=== PATIENT | male | born 1965 | race African-American/Black ===

== ENCOUNTER 2018-07-20 18:24 | Inpatient (IN) | payer MEDICAID ==
[~2018-07-20] VITALS: Ht 185.4 cm; Wt 64.9 kg
[2018-07-20] MEDS ORDERED: KETOROLAC 30MG/ML VIAL IV ONE (22:30)
[2018-07-20] MEDS ORDERED: LEVETIRACETAM 500MG PREMIX 100 ML IV ONE (22:30)
[2018-07-20] MEDS ORDERED: TETANUS, DIPHTHERIA, PERTUSSIS VAC/PF 0.5ML (>7YR OLD) IM ONE (22:30)
[2018-07-20] MEDS ORDERED: SODIUM CHLORIDE 0.9% 1,000 ML IV ONE (22:32)
[2018-07-20 23:18] LABS: BASOPHILS % 1.7 % (0.0-2.0); HEMATOCRIT. 39.7 % (42.0-52.0); HEMOGLOBIN. 13.7 g/dL (14.0-18.0); LYMPHOCYTES % 32.3 % (20.0-50.0); MEAN CORPUSCULAR HEMOGLOBIN 32.5 pg (28.0-32.0); MEAN CORPUSCULAR VOLUME 94.2 fL (80.0-94.0); MEAN PLATELET VOLUME 8.2 fl (7.4-10.4); MONOCYTES % 10.5 % (2.0-8.0); NEUTROPHILS % 53.5 % (40.0-76.0); PLATELET 139 x1000/uL (130-400); RED BLOOD CELL COUNT 4.22 mill/uL (4.7-6.1); RED CELL DISTRIBUTION WIDTH 14.2 % (11.6-14.6)
[2018-07-20 23:22] LABS: CHLORIDE 101 mEq/L (98-107)
[2018-07-20 23:27] LABS: ETHANOL BLOOD 67 mg/dL; PROTHROMBIN TIME 9.7 sec (9.1-11.1)
[2018-07-20] MEDS ORDERED: FOLIC ACID 1 MG, MVI, ADULT NO.1 10 ML in DEXTROSE 5% WATER 1,000 ML IV SCH ×3 (23:45)
[2018-07-20] MEDS ORDERED: FOLIC ACID 1 MG, THIAMINE HCL 100 MG, MVI, ADULT NO.1 10 ML in DEXTROSE 5% WATER 1,000 ML IV ONE ×4 (23:45)
[2018-07-21] MEDS ORDERED: LORAZEPAM 2MG/ML CPJ IV ONE (00:15)
[2018-07-21 03:02] LABS: CLARITY URINE CLEAR (CLEAR); COLOR URINE YELLOW (YELLOW); KETONES URINE NEGATIVE (NEGATIVE); LEUKOCYTE ESTERASE URINE NEGATIVE (NEGATIVE); NITRITE URINE NEGATIVE (NEGATIVE); OCCULT BLOOD URINE NEGATIVE (NEGATIVE); PH URINE 5.5 (4.5-8.0); PROTEIN URINE NEGATIVE (NEGATIVE); SPECIFIC GRAVITY URINE 1.009 (1.005-1.030); UROBILINOGEN URINE 0.2 E.U./dL (0.2-1.0)
[2018-07-21 03:24] LABS: *AMPHETAMINES SCREEN URINE NEGATIVE (NEGATIVE)
[2018-07-21 03:25] LABS: *BARBITURATES SCREEN URINE NEGATIVE (NEGATIVE); *BENZODIAZEPINES SCREEN URINE NEGATIVE (NEGATIVE); *COCAINE SCREEN URINE NEGATIVE (NEGATIVE); CANNABINOID URINE SCREEN PRESUMTIVE POSITIVE (NEGATIVE); METHADONE URINE SCREEN NEGATIVE (NEGATIVE); OPIATES URINE SCREEN NEGATIVE (NEGATIVE); PHENCYCLIDINE URINE SCREEN NEGATIVE (NEGATIVE)
[2018-07-21 03:55] VITALS: BP 155/83
[2018-07-21 04:00] VITALS: BP 126/95
[2018-07-21 04:15] VITALS: BP 155/83
[2018-07-21] MEDS ORDERED: LORAZEPAM 2MG/ML CPJ IV PRN (07:00)
[2018-07-21] MEDS ORDERED: ACETAMINOPHEN 325MG TABLET PO PRN (07:00)
[2018-07-21 08:00] VITALS: BP 104/68
[2018-07-21] MEDS ORDERED: FAMOTIDINE 20MG TABLET PO SCH (09:00)
[2018-07-21 09:36] LABS: BASOPHILS % 1.4 % (0.0-2.0); EOSINOPHILS % 1.5 % (0.0-5.0); HEMATOCRIT. 38.7 % (42.0-52.0); HEMOGLOBIN. 13.1 g/dL (14.0-18.0); LYMPHOCYTES % 17.1 % (20.0-50.0); MEAN CORPUSCULAR HEMOGLOBIN 32.3 pg (28.0-32.0); MEAN CORPUSCULAR VOLUME 95.7 fL (80.0-94.0); MEAN PLATELET VOLUME 8.8 fl (7.4-10.4); MONOCYTES % 11.9 % (2.0-8.0); NEUTROPHILS % 68.1 % (40.0-76.0); PLATELET 128 x1000/uL (130-400); RED BLOOD CELL COUNT 4.05 mill/uL (4.7-6.1)
[2018-07-21 09:39] LABS: CHLORIDE 102 mEq/L (98-107)
[2018-07-21 12:00] VITALS: BP 108/77
[2018-07-21 12:05] VITALS: BP 108/77
== END 2018-07-21 15:25 | disposition home or self-care (01) | DRG 53 ==
LOC: ER 18:24 → 5WST 07-21 00:18 → ENRESERV 07-21 01:55
PROVIDERS: ADMIT Internal Medicine Geriatric Medicine; ATTEND Internal Medicine Geriatric Medicine
DX: R56.9 Unspecified convulsions (principal); E44.1 Mild protein-calorie malnutrition; E87.1 Hypo-osmolality and hyponatremia; F10.239 Alcohol dependence with withdrawal, unspecified; Z71.41 Alcohol abuse counseling and surveillance of alcoholic; F17.210 Nicotine dependence, cigarettes, uncomplicated; R00.0 Tachycardia, unspecified; S01.511A Laceration without foreign body of lip, initial encounter; X58.XXXA Exposure to other specified factors, initial encounter; Y93.89 Activity, other specified; Y92.89 Other specified places as the place of occurrence of the external cause; Y99.8 Other external cause status
CPT/HCPCS: 36415; 71045; 80048; 80305; 84443; 84484; 90471; 90715; 93005; 96365; 96375; 99285; J1885; J1953; J2060; J3411; J3490; J7030; J7070

== ENCOUNTER 2018-09-22 10:11 | Emergency (ER) | payer MEDICAID ==
[~2018-09-22] VITALS: Ht 185.4 cm; Wt 70.0 kg
[2018-09-22 10:19] VITALS: BP 124/87
[2018-09-22] MEDS ORDERED: IBUPROFEN 800MG TABLET PO ONE (14:30)
== END 2018-09-22 16:32 | disposition home or self-care (01) ==
LOC: ER 10:27
DX: M54.5 Low back pain (principal)
CPT/HCPCS: 72100; 99283

== ENCOUNTER 2019-04-17 12:17 | Emergency (ER) | payer MEDICAID, OTHER ==
[~2019-04-17] VITALS: Ht 185.4 cm; Wt 75.0 kg
[2019-04-17 13:53] VITALS: BP 105/64
[2019-04-17] MEDS ORDERED: HYDROCODONE/ACETAMINOPHEN 5/325MG TABLET PO ONE (14:00)
== END 2019-04-17 17:37 | disposition home or self-care (01) ==
LOC: ER 12:36
DX: S52.592A Other fractures of lower end of left radius, initial encounter for closed fracture (principal); S52.615A Nondisplaced fracture of left ulna styloid process, initial encounter for closed fracture; F17.210 Nicotine dependence, cigarettes, uncomplicated; Z71.6 Tobacco abuse counseling; W10.8XXA Fall (on) (from) other stairs and steps, initial encounter; Y93.89 Activity, other specified; Y92.89 Other specified places as the place of occurrence of the external cause
CPT/HCPCS: 29125; 73110; 99283; 99406

== ENCOUNTER 2019-05-24 13:20 | Emergency (ER) | payer MEDICAID ==
[~2019-05-24] VITALS: Ht 175.3 cm; Wt 80.0 kg
[2019-05-24] MEDS ORDERED: KETOROLAC 30MG/ML VIAL IM ONE (16:15)
[2019-05-24 17:31] VITALS: BP 111/72
== END 2019-05-24 17:40 | disposition home or self-care (01) ==
LOC: ER 13:20
DX: S52.512A Displaced fracture of left radial styloid process, initial encounter for closed fracture (principal); W18.30XA Fall on same level, unspecified, initial encounter; Y93.89 Activity, other specified; Y92.89 Other specified places as the place of occurrence of the external cause; Y99.8 Other external cause status
CPT/HCPCS: 73110; 96372; 99283; J1885

== ENCOUNTER 2020-08-13 20:17 | Emergency (ER) | payer MEDICAID ==
[~2020-08-13] VITALS: Ht 182.9 cm; Wt 68.0 kg
[2020-08-13] MEDS ORDERED: LEVETIRACETAM 500MG TABLET PO ONE (21:00)
[2020-08-13] MEDS ORDERED: ACETAMINOPHEN 325MG TABLET PO ONE (21:15)
[2020-08-13] MEDS ORDERED: KEPP500 MT (22:52)
[2020-08-13 22:53] VITALS: BP 136/90
== END 2020-08-13 22:58 | disposition home or self-care (01) ==
LOC: ER 20:17
DX: S09.8XXA Other specified injuries of head, initial encounter (principal); W07.XXXA Fall from chair, initial encounter; Y93.89 Activity, other specified; Y92.89 Other specified places as the place of occurrence of the external cause; G40.909 Epilepsy, unspecified, not intractable, without status epilepticus
CPT/HCPCS: 99284